=== PATIENT | female | born 1955 | race Caucasian/White ===

== ENCOUNTER 2017-01-07 10:28 | Inpatient (IN) ==
[2017-01-07] MEDS ORDERED: ACETAMINOPHEN 325 MG TABLET PO PRN (11:01)
--- NOTE | 2017-01-07 11:10 | Internal Med History&Physical ---
Assessment and Plan (1) Intractable nausea and vomiting Status: Acute Assessment and plan: 61-year-old female admitted to acute care * Ureteral colic. Patient is having severe pain. She is unable to keep anything down. She is having nausea and vomiting. She has been treated as outpatient without much improvement. Will admit her to the hospital will start her on IV fluids, narcotics, Zofran. Will consult urology to see the patient * Hydronephrosis. She has mild hydronephrosis and hydroureter. Will start her on Flomax. * Hypertension. Will continue her blood pressure medications * Discussed with patient and her (2) Ureterolithiasis Status: Acute (3) Hypertension Status: Acute History of Present Illness Chief complaint: Intractable nausea and vomiting associated with ureteral stone History of present illness: Ms. Jackson is a 61 year old female with history of hypertension, nephrolithiasis and kidney stones came to the office with intractable nausea and vomiting for the past 4 days. Patient felt she had a kidney stone and went to the emergency room at [facility]. She was given some Flomax and pain medications and sent home. She went to [facility] emergency room last night and was given IV fluids. She had a CT renal colic which showed right ureteral stone about 5.6 mm and hydronephrosis. She also had bilateral renal stones. She was given Dilaudid and IV fluids. Patient continues to have abdominal pain along with in intractable nausea and vomiting. She is unable to keep anything down. She has taken several Dilaudid pills without much relief. She is having pain in the lower abdomen on the right side which radiates to the front. She denies any fever or chills. She denies any diarrhea but has had nausea and vomiting as mentioned above. She lives at home with her . No history of smoking or alcohol use Home Medications Medication Instructions Recorded Confirmed Type HYDROmorphone TAB [Dilaudid Tab] 4 mg PO Q4H #30 tablet 01/06/17 Rx Promethazine Tab [Phenergan Tab] 25 mg PO Q6H PRN #20 tablet 01/06/17 Rx Allergies Allergy/AdvReac Type Severity Reaction Status Date / Time acetaminophen Allergy RASH Verified 01/06/17 17:09 [From Darvocet-N] propoxyphene Allergy RASH Verified 01/06/17 17:09 [From Darvocet-N] Medical,Surgical,& Family Hx - Medical History Cardio: History of: Hypertension Genitourinary: History of: Kidney Stones - Surgical History Reproductive Surgeries: Surgical HX of;: Genitourinary Surgery (Bladder sling surgery), Hysterectomy - Family History Family History: Reports;: Family Cancer, Family Hypertension - Social History Smoking Status: Never smoker Frequency of Alcohol Use: None Marital Status: Lives With:: Spouse Functional capacity: independent ambulation 12 point system: reviewed and no additional remarkable complaints except as stated (As mentioned in HPI) Exam - Constitutional Exam: Examination: GENERAL: Patient is in distress because of pain HEENT: PERRLA. EOMI. Mucous membranes are moist. NECK: Neck is supple. No JVD. No carotid bruit. No thyromegaly. CVS: Regular rate and rhythm. S1 and S2 are normal. RESPIRATORY: Lungs are clear. No rales or rhonchi. ABDOMEN: Soft but quite tender in the right flank and right lower abdomen. No rebound or rigidity. Bowel sounds are present. No hepatosplenomegaly. EXT: No edema. Peripheral pulses are present. [employer]: Patient is awake, alert and oriented to time place and person. Cranial nerves II through XII are grossly intact. Motor strength is 5 over 5 both upper and lower extremities. SKIN: Warm and dry. MSK: No obvious deformity.
[2017-01-07 12:25] LABS: Basophils % 0.2 % (0.0-0.8); Eosinophils % 0.1 % (0.00-10.9); Hematocrit 40.4 VOL% (35.7-47.0); Hemoglobin 13.8 GM/DL (12.0-16.0); Immature Granulocytes % 0.4 %; Immature Granulocytes Absolute 0.06 #; Lymphocytes # 1.1 10*3/uL (1.4-4.0); Lymphocytes % 7.8 % (21.3-54.2); Mean Corpuscular HGB Conc 34.2 GM/DL (32-36); Mean Corpuscular Hemoglobin 30 PG (27-34); Mean Corpuscular Volume 88.6 FL (87-102); Mean Platelet Volume 10.1 FL (9.6-12.0); Monocytes % 7.2 % (1.7-12.7); Neutrophils % 84.3 % (38.7-73.9); Platelet Count 303 T/CUMM (130-400); Red Blood Count 4.56 MC/CUMM (3.8-5.5); White Blood Count 14.3 T/CUMM (4-12)
[2017-01-07] MEDS: HYDROmorphone 2 MG/1 ML VIAL IV PRN ×3 (13:05→21:03)
[2017-01-07] MEDS: ONDANSETRON 4 MG/2 ML VIAL IV PRN ×2 (13:05→20:56)
[2017-01-07] MEDS: TAMSULOSIN 0.4 MG CAPSULE PO SCH (13:06)
[2017-01-07 13:08] LABS: Albumin 3.9 G/DL (3.4-5.0); Bilirubin,Total 0.8 MG/DL (0.2-1.0); Calcium 8.4 MG/DL (8.5-10.1); Osmolality,Calculated 276.5 MOS/KG (273-304); Total Protein 6.8 G/DL (6.4-8.3)
[2017-01-07] MEDS: SODIUM CHLORIDE 0.9% 1,000 ML IV SCH ×2 (13:10→23:23)
[2017-01-07 13:41] LABS: Apearance,Urine CLEAR (Clear); Bacteria,Urine Moderate /HPF (Few); Bilirubin,Urine Negative (Negative); Blood, Urine Small mg/dL (Negative); Glucose,Urine (UA) Negative (Negative); Ketones,Urine 20 mg/dL (Negative); Nitrite,Urine Negative (Negative); Protein,Urine Negative; RBC,Urine 2 /HPF (0-4); Squamous Epithelial Cell,Urine Occasional /HPF (0-10); Urine Color Straw (Yellow); Urine Specific Gravity 1.005 (1.001-1.035); Urine Urobilinogen < 2.0 EU/DL (0.2-1.0); WBC,Urine 7 /HPF (0-6)
--- NOTE | 2017-01-07 14:53 | Urology Consultation ---
History of Present Illness - Data of Consult Consult date: 01/07/17 - Consult Narrative History of present illness: Ms. Jackson is a 61 year old female This 61-year-old white female was seen in the emergency room at [facility] 4 days ago with symptoms of ureteral colic and she was treated but did not have a CT scan. She was sent home on Flomax and pain medication. Because of persistent pain she was seen in the emergency room at [facility] yesterday and a CT scan shows a 5 mm stone in the distal ureter with mild obstruction. The patient's main problem is been persistent nausea. She has a past history of stones and has spontaneously passed 2 stones previously and she has a small bilateral renal stones. She has mild hematuria on urinalysis and a few WBCs but no evidence of infection. She says that she was given a prescription for Cipro at [facility]. I am going recommend we continue conservative medical management. I am going to get a KUB to see if the stone is visualized and possibly consider lithotripsy Wednesday if she has not improved CC: Ross Garcia MD - Home Medications and Allergies Home Medications: Home Medications Medication Instructions Recorded Confirmed Type Promethazine Tab [Phenergan Tab] 25 mg PO Q6H PRN #20 tablet 01/06/17 01/07/17 Rx Estrogens(Conj) Tab [Premarin Tab] 0.3 mg PO DAILY 01/07/17 01/07/17 History HYDROmorphone TAB [Dilaudid Tab] 4 mg PO Q4H PRN 01/07/17 01/07/17 History Metoprolol Succinate 100 mg PO BID 01/07/17 01/07/17 History Tamsulosin [Flomax] 0.4 mg PO DAILY 01/07/17 01/07/17 History Tramadol HCl [Tramadol Tab] 50 mg PO DAILY 01/07/17 01/07/17 History Allergies/Adverse Reactions: Allergies Allergy/AdvReac Type Severity Reaction Status Date / Time acetaminophen Allergy RASH Verified 01/06/17 17:09 [From Darvocet-N] propoxyphene Allergy RASH Verified 01/06/17 17:09 [From Darvocet-N] Exam - Constitutional Vitals: Period Temp Pulse Resp BP Sys/Aponte Pulse Ox Last 24 Hr 97.7 F 67 18 164/78 96 Results - Labs CBC & BMP: 01/07/17 12:09 01/07/17 12:09
[2017-01-07] MEDS: LEVOFLOXACIN INJ 500 MG in PREMIX 1 EACH IV SCH (16:31)
--- NOTE | 2017-01-07 17:57 | XRay Report ---
History: Right ureteral stone Date: 01/07/2017 Study: KUB Comparison exam: April 12, 2013 abdominal x-ray The bowel gas pattern is nonobstructive without gross mass lesion. There is mild lumbar spondylosis. There is a 4 mm rounded calcification over the right hemipelvis which presumably represents the distal right ureteral stone seen on CT abdomen and pelvis from 01/06/2017. This calcification was not present on the comparison KUB. There is also a 4 mm calculus over the mid to inferior left renal shadow. There is mild lumbar spondylosis and suspected osteopenia. Impression: Distal right ureteral stone. Left nephrolithiasis PROCEDURE INTERPRETED AT [facility] DEPARTMENT OF RADIOLOGY Final Report Signed by: Dr. Ayse Hunt
[2017-01-07] MEDS: METOPROLOL SUCCINATE XL 100 MG TABLET PO SCH (20:56)
[2017-01-07] MEDS: DOCUSATE SODIUM 100 MG CAPSULE PO SCH (21:04)
[2017-01-08] MEDS: HYDROmorphone 2 MG/1 ML VIAL IV PRN (03:42)
[2017-01-08] MEDS: SODIUM CHLORIDE 0.9% 1,000 ML IV SCH ×4 (06:08→21:46)
[2017-01-08 07:40] LABS: Basophils % 0.1 % (0.0-0.8); Eosinophils % 0.2 % (0.00-10.9); Hemoglobin 12.7 GM/DL (12.0-16.0); Immature Granulocytes % 0.3 %; Immature Granulocytes Absolute 0.04 #; Lymphocytes # 1.4 10*3/uL (1.4-4.0); Lymphocytes % 11.6 % (21.3-54.2); Mean Corpuscular HGB Conc 33.4 GM/DL (32-36); Mean Corpuscular Hemoglobin 30 PG (27-34); Mean Corpuscular Volume 89.6 FL (87-102); Mean Platelet Volume 10.4 FL (9.6-12.0); Monocytes # 1.1 10*3/uL (0.11-0.8); Monocytes % 9.3 % (1.7-12.7); Neutrophils # 9.1 10*3/uL (1.4-7.4); Neutrophils % 78.5 % (38.7-73.9); Platelet Count 262 T/CUMM (130-400); Red Blood Count 4.24 MC/CUMM (3.8-5.5); Red Cell Distribution Width 12.1 % (9.3-17.3); White Blood Count 11.6 T/CUMM (4-12)
[2017-01-08] MEDS ORDERED: HYDROmorphone 2 MG TABLET PO PRN (07:42)
--- NOTE | 2017-01-08 07:42 | Urology Progress Note ---
Urology - PN: Subj Interval history: The patient still has pain. I am going to plan treatment with shockwave lithotripsy Wednesday. Will order oral pain medication to see if this will control the patient's pain Exam - Constitutional Vitals: Period Temp Pulse Resp BP Sys/Aponte Pulse Ox Last 24 Hr 97.7 F-99.7 F 64-77 16-18 138-164/69-78 90-96 Results - Labs CBC & BMP: 01/07/17 12:09 01/07/17 12:09
[2017-01-08 08:10] LABS: Calcium 7.7 MG/DL (8.5-10.1); Osmolality,Calculated 275.5 MOS/KG (273-304)
[2017-01-08] MEDS ORDERED: HYDROmorphone 2 MG/1 ML VIAL SUBCUT ONE (08:23)
--- NOTE | 2017-01-08 08:30 | Internal Med Progress Note ---
Assessment and Plan (1) Intractable nausea and vomiting Status: Acute Assessment and plan: 61-year-old female admitted to acute care * Ureteral colic. She is still having pain. Will continue Dilaudid. Will try it subcu to see if it lasts longer. Will also write for [place] as needed * Hydronephrosis. She has mild hydronephrosis and hydroureter. Will start her on Flomax. * Hypertension. Will continue her blood pressure medications * Dr. Toure is following the patient Current Visit: Yes (2) Ureterolithiasis Status: Acute Current Visit: No (3) Hypertension Status: Acute Current Visit: Yes Internal Medicine - PN: Subj Interval history: Patient is still having a lot of pain along with nausea. Dilaudid is not lasting as long. She is having pain in the flank area and abdomen. She denies any fever or chills. Exam (Progress Note) - Constitutional Vitals: Period Temp Pulse Resp BP Sys/Aponte Pulse Ox Last 24 Hr 97.7 F-99.7 F 64-77 16-18 138-164/69-78 90-96 Exam: Examination: GENERAL: Patient is in distress because of pain HEENT: PERRLA. EOMI. NECK: Neck is supple. CVS: Regular rate and rhythm. S1 and S2 are normal. RESPIRATORY: Lungs are clear. ABDOMEN: Soft but quite tender in the right flank and right lower abdomen. EXT: No edema. Peripheral pulses are present. SKIN: Warm and dry. MSK: No obvious deformity. Results - Labs CBC & BMP: 01/08/17 06:34 01/08/17 06:34 Lab Results: I have reviewed the past 24 hour labs
[2017-01-08] MEDS: TAMSULOSIN 0.4 MG CAPSULE PO SCH (08:39)
[2017-01-08] MEDS: PANTOPRAZOLE 40 MG TABLET PO SCH (08:39)
[2017-01-08] MEDS: METOPROLOL SUCCINATE XL 100 MG TABLET PO SCH ×2 (08:39→21:45)
[2017-01-08] MEDS: DOCUSATE SODIUM 100 MG CAPSULE PO SCH ×2 (08:40→21:43)
[2017-01-08] MEDS: ESTROGENS (CONJ) 0.3 MG TABLET PO SCH (08:40)
[2017-01-08] MEDS: ONDANSETRON 4 MG/2 ML VIAL IV PRN ×2 (08:40→20:00)
[2017-01-08] MEDS: HYDROmorphone 2 MG/1 ML VIAL SUBCUT PRN ×2 (15:30→20:00)
[2017-01-08] MEDS: LEVOFLOXACIN INJ 500 MG in PREMIX 1 EACH IV SCH (16:47)
[2017-01-09] MEDS: ONDANSETRON 4 MG/2 ML VIAL IV PRN (02:22)
[2017-01-09] MEDS: HYDROmorphone 2 MG/1 ML VIAL SUBCUT PRN (02:25)
[2017-01-09] MEDS: SODIUM CHLORIDE 0.9% 1,000 ML IV SCH ×3 (05:12→23:13)
--- NOTE | 2017-01-09 08:01 | Urology Progress Note ---
Urology - PN: Subj Interval history: The patient's urine culture is negative at 48 hours. She still complains of pain and does not want to go home. She is for lithotripsy Wednesday Exam - Constitutional Vitals: Period Temp Pulse Resp BP Sys/Aponte Pulse Ox Last 24 Hr 97.9 F-100.6 F 74-83 16-18 124-155/68-79 90-99 Results - Labs CBC & BMP: 01/08/17 06:34 01/08/17 06:34
[2017-01-09] MEDS: DOCUSATE SODIUM 100 MG CAPSULE PO SCH ×2 (08:16→21:47)
[2017-01-09] MEDS: ESTROGENS (CONJ) 0.3 MG TABLET PO SCH (08:16)
[2017-01-09] MEDS: TAMSULOSIN 0.4 MG CAPSULE PO SCH (08:16)
[2017-01-09] MEDS: PANTOPRAZOLE 40 MG TABLET PO SCH (08:16)
[2017-01-09] MEDS: METOPROLOL SUCCINATE XL 100 MG TABLET PO SCH ×2 (08:16→21:47)
[2017-01-09] MEDS: MAGNESIUM HYDROXIDE SUSP 30 ML UDCUP PO PRN (09:10)
--- NOTE | 2017-01-09 14:30 | Family Practice Progress Note ---
Family Practice - PN: Subj Interval history: Patient states that her pain is improved for the first time since admission. She requested diet and was eating small amounts of food when I entered the room. Advised even though she is hungry I would have her eat just small amounts for the first. She denies any new complaints. If patient continues to improve hopefully can discharge in a.m.. She is scheduled for outpatient lithotripsy on Wednesday. Her physical examination is stable Exam (Progress Note) - Constitutional Vitals: Period Temp Pulse Resp BP Sys/Aponte Pulse Ox Last 24 Hr 98.1 F-100.6 F 74-79 16-18 138-155/68-84 90-99 Results - Labs CBC & BMP: 01/08/17 06:34 01/08/17 06:34
[2017-01-09] MEDS: LEVOFLOXACIN INJ 500 MG in PREMIX 1 EACH IV SCH (16:01)
[2017-01-10] MEDS: SODIUM CHLORIDE 0.9% 1,000 ML IV SCH ×2 (04:00→14:37)
[2017-01-10 05:43] LABS: Basophils % 0.4 % (0.0-0.8); Eosinophils # 0.3 10*3/uL (0.0-0.87); Eosinophils % 3.3 % (0.00-10.9); Hematocrit 39.8 VOL% (35.7-47.0); Hemoglobin 13.2 GM/DL (12.0-16.0); Immature Granulocytes % 0.5 %; Immature Granulocytes Absolute 0.04 #; Lymphocytes # 1.3 10*3/uL (1.4-4.0); Lymphocytes % 15.7 % (21.3-54.2); Mean Corpuscular HGB Conc 33.2 GM/DL (32-36); Mean Corpuscular Hemoglobin 30 PG (27-34); Mean Platelet Volume 10.4 FL (9.6-12.0); Monocytes # 0.8 10*3/uL (0.11-0.8); Monocytes % 9.3 % (1.7-12.7); Neutrophils # 5.7 10*3/uL (1.4-7.4); Neutrophils % 70.8 % (38.7-73.9); Platelet Count 254 T/CUMM (130-400); Red Blood Count 4.42 MC/CUMM (3.8-5.5); Red Cell Distribution Width 12.2 % (9.3-17.3); White Blood Count 8.1 T/CUMM (4-12)
[2017-01-10 06:08] LABS: Osmolality,Calculated 278.3 MOS/KG (273-304); Potassium 3.8 MMOL/L (3.5-5.1)
[2017-01-10] MEDS: MAGNESIUM HYDROXIDE SUSP 30 ML UDCUP PO PRN (08:33)
[2017-01-10] MEDS: HYDROmorphone 2 MG/1 ML VIAL SUBCUT PRN ×3 (08:33→22:38)
[2017-01-10] MEDS: PANTOPRAZOLE 40 MG TABLET PO SCH (08:33)
[2017-01-10] MEDS: METOPROLOL SUCCINATE XL 100 MG TABLET PO SCH ×2 (08:33→21:30)
[2017-01-10] MEDS: TAMSULOSIN 0.4 MG CAPSULE PO SCH (08:33)
[2017-01-10] MEDS: DOCUSATE SODIUM 100 MG CAPSULE PO SCH ×2 (08:34→21:30)
[2017-01-10] MEDS: ESTROGENS (CONJ) 0.3 MG TABLET PO SCH (08:34)
--- NOTE | 2017-01-10 12:14 | Urology Progress Note ---
Urology - PN: Subj Interval history: We will keep the patient n.p.o. after midnight tonight. The patient can be discharged tomorrow to outpatient surgery for lithotripsy Exam - Constitutional Vitals: Period Temp Pulse Resp BP Sys/Aponte Pulse Ox Last 24 Hr 98.1 F-99.7 F 70-79 16-20 131-159/63-91 92-95 Results - Labs CBC & BMP: 01/10/17 05:02 01/10/17 05:02
--- NOTE | 2017-01-10 13:46 | Family Practice Progress Note ---
Family Practice - PN: Subj Interval history: Patient did well last p.m. but states she awoke with severe pain early this a.m.. States her nausea has returned since pain has recurred. Not as severe as it had been but still requiring pain medications. Her a.m. labs and vitals are stable. Her physical examination is stable otherwise. Still scheduled for lithotripsy in a.m. we will continue present treatment plan. Exam (Progress Note) - Constitutional Vitals: Period Temp Pulse Resp BP Sys/Aponte Pulse Ox Last 24 Hr 98.1 F-99.7 F 70-79 16-20 131-159/63-91 92-95 Results - Labs CBC & BMP: 01/10/17 05:02 01/10/17 05:02
[2017-01-10] MEDS: LEVOFLOXACIN INJ 500 MG in PREMIX 1 EACH IV SCH (15:28)
[2017-01-10] MEDS: ONDANSETRON 4 MG/2 ML VIAL IV PRN (22:45)
[2017-01-11] MEDS: SODIUM CHLORIDE 0.9% 1,000 ML IV SCH ×2 (02:57→05:48)
[2017-01-11] MEDS: HYDROmorphone 2 MG/1 ML VIAL SUBCUT PRN ×2 (02:58→09:22)
[2017-01-11 07:04] LABS: Basophils % 0.3 % (0.0-0.8); Eosinophils # 0.3 10*3/uL (0.0-0.87); Eosinophils % 3.4 % (0.00-10.9); Hematocrit 33.8 VOL% (35.7-47.0); Hemoglobin 11.5 GM/DL (12.0-16.0); Immature Granulocytes % 0.3 %; Immature Granulocytes Absolute 0.02 #; Lymphocytes # 1.2 10*3/uL (1.4-4.0); Lymphocytes % 16.1 % (21.3-54.2); Mean Corpuscular Hemoglobin 30 PG (27-34); Mean Platelet Volume 10.3 FL (9.6-12.0); Monocytes # 0.8 10*3/uL (0.11-0.8); Monocytes % 10.2 % (1.7-12.7); Neutrophils # 5.2 10*3/uL (1.4-7.4); Neutrophils % 69.7 % (38.7-73.9); Platelet Count 290 T/CUMM (130-400); Red Blood Count 3.84 MC/CUMM (3.8-5.5); Red Cell Distribution Width 12.4 % (9.3-17.3); White Blood Count 7.5 T/CUMM (4-12)
[2017-01-11 07:22] VITALS: BP 165/91
[2017-01-11 07:40] LABS: Calcium 7.4 MG/DL (8.5-10.1); Osmolality,Calculated 274.5 MOS/KG (273-304)
--- NOTE | 2017-01-11 08:24 | Discharge Summary ---
Hospital Course - Hospital Course Hospital Course: 61-year-old female admitted to acute care with severe ureteral colic pain. She had intractable nausea and vomiting. Patient was started on antibiotics and IV pain medications. She was changed to subcu Dilaudid which helped her better. She continues to have significant nausea. She has a small stone in the right ureter. She was seen in consultation by Dr. Jimenes. He recommended lithotripsy. Patient will be discharged to home today. She will go to same day surgery and have lithotripsy and then go home. She will continue her blood pressure medications. I will see her in office next week Diagnosis - Discharge Diagnosis (1) Intractable nausea and vomiting Status: Acute (2) Ureterolithiasis Status: Acute (3) Hypertension Status: Acute Discharge Plan - Discharge Data Disposition: Disch To Home/Self Care Condition at Discharge: Guarded Discharge Diet: advance to your usual diet Activity: other (As per urology) - Discharge Medications New Levofloxacin Tab [Levaquin Tab] 500 mg PO DAILY #5 tablet Continue Promethazine Tab [Phenergan Tab] 25 mg PO Q6H PRN #20 tablet PRN Reason: nausea, vomiting or headache Tamsulosin [Flomax] 0.4 mg PO DAILY HYDROmorphone TAB [Dilaudid Tab] 4 mg PO Q4H PRN PRN Reason: Abdominal Pain Estrogens(Conj) Tab [Premarin Tab] 0.3 mg PO DAILY Tramadol HCl [Tramadol Tab] 50 mg PO DAILY Metoprolol Succinate 100 mg PO BID - Follow Up or Referral - Forms/Instructions Additional Discharge Instructions: Appointment in 10 days at office with CBC and a BMP Exam - Constitutional Vitals: Period Temp Pulse Resp BP Sys/Aponte Pulse Ox Last 24 Hr 98.2 F-99.4 F 72-79 18-21 131-166/71-91 92-98 Exam: Examination: GENERAL: Patient is in distress because of pain NECK: Neck is supple. CVS: Regular rate and rhythm. S1 and S2 are normal. RESPIRATORY: Lungs are clear. ABDOMEN: Soft but quite tender in the right flank and right lower abdomen. EXT: No edema. SKIN: Warm and dry. MSK: No obvious deformity. Discharge Results Procedures and tests throughout hospitalization: Pending Orders 01/07/17 12:09 Blood Culture Stat Labs on day of discharge: Labs from last 24 hours 01/11/17 01/11/17 05:54 05:54 WBC 7.5 RBC 3.84 Hgb 11.5 L Hct 33.8 L MCV 88.0 MCH 30 MCHC 34.0 RDW 12.4 Plt Count 290 MPV 10.3 Neut % (Auto) 69.7 Lymph % (Auto) 16.1 L Ro[place] % (Auto) 10.2 Eos % (Auto) 3.4 Baso % (Auto) 0.3 Neut # (Auto) 5.2 Lymph # (Auto) 1.2 L Ro[place] # (Auto) 0.8 Eos # (Auto) 0.3 Baso # (Auto) 0.0 Immature Gran % 0.3 Nucleated RBC % 0.0 Immature Gran # 0.02 Nucleated RBCs # 0.00 Sodium 139 Potassium 4.0 Chloride 107 Carbon Dioxide 24 Anion Gap 12.0 BUN 6 L Creatinine 0.70 GFR Calculation 96 BUN/Creatinine Ratio 8.00 Glucose 100 Calculated Osmolality 274.5 Calcium 7.4 L Preliminary micro results at discharge 01/07/17 12:09 Blood Culture - Preliminary Blood No growth at 3 days 01/07/17 12:09 Blood Culture - Preliminary Blood No growth at 3 days DS: Provider Date of admission: 01/07/17 11:18 Primary care physician: Ross Garcia MD Attending physician on admission: Ross Garcia MD Consults: 01/07/17 11:01 Consult to Case Mgmt/Social Srvs [CONS] Routine Reason for Case Mgmt/Social Srvs: Discharge Planning Consult to Physician [CONS] Routine Comment: Ureteral colic with hydronephrosis Consulting Provider: Bao Jimenes Person Notified: Brianda Date Notified: 01/07/17 Time Notified: 13:39 01/07/17 14:25 Consult to Pharmacy [CONS] Routine Reason for Pharmacy Consult: Adjust Meds Renal Funct Discharging clinician: Ross Garcia MD
[2017-01-11] MEDS: METOPROLOL SUCCINATE XL 100 MG TABLET PO SCH (09:22)
[2017-01-11] MEDS: DOCUSATE SODIUM 100 MG CAPSULE PO SCH (11:29)
[2017-01-11] MEDS: ESTROGENS (CONJ) 0.3 MG TABLET PO SCH (11:29)
[2017-01-11] MEDS: TAMSULOSIN 0.4 MG CAPSULE PO SCH (11:29)
[2017-01-11] MEDS: PANTOPRAZOLE 40 MG TABLET PO SCH (11:30)
== END 2017-01-11 11:58 | disposition home or self-care (01) | DRG 691 ==
LOC: N.5E 11:18
PROVIDERS: ADMIT Internal Medicine; ATTEND Internal Medicine